=== PATIENT | male | born 1965 | race Two or more races ===

== ENCOUNTER 2020-04-13 12:32 | Emergency (ER) | payer BC, MEDICARE ==
[2020-04-13] MEDS ORDERED: Sodium Chloride 0.9% 10 ML Syringe FLUSH PRN (12:37)
--- NOTE | 2020-04-13 12:37 | EDM.PDOC ---
ED HPI GENERAL MEDICAL PROBLEM - General Chief Complaint: Upper Extremity Injury/Pain Stated Complaint: fall, left shoulder pain Time Seen by Provider: 04/13/20 12:35 Source of Information: Reports: Patient. Denies: Old Records (No [facility] records available) History Limitations: Reports: No Limitations - History of Present Illness INITIAL COMMENTS - FREE TEXT/NARRATIVE: The patient was brought to the emergency room Onset: Today, Sudden Onset Date: 04/13/20 Onset Time: 11:45 Duration: Constant Left Shoulder Pain Score (Numeric/FACES): 10 - Related Data Allergies Allergy/AdvReac Type Severity Reaction Status Date / Time codeine Allergy Vomiting Verified 04/13/20 12:37 Home Meds: Home Meds Losartan [Cozaar] 1 tab PO DAILY 04/13/20 [History] amLODIPine [Norvasc] 2 tab PO DAILY 04/13/20 [History] Course - Vital Signs Last Recorded V/S: Last Vital Signs Temp 35.8 C L 04/13/20 12:34 Pulse 80 04/13/20 12:34 Resp 18 04/13/20 12:34 BP 117/74 04/13/20 12:34 Pulse Ox 97 04/13/20 12:34 - Orders/Labs/Meds Orders: Active Orders 24 hr Category Date Time Status Cardiac Monitoring [RC] . DIRECTED Care 04/13/20 12:51 Active EKG Documentation Completion [RC] ASDIRECTED Care 04/13/20 13:50 Active Oxygen Therapy, ED [RC] PRN Care 04/13/20 12:37 Active Peripheral IV Care [RC] . DIRECTED Care 04/13/20 12:37 Active Pulse Oximetry [RC] CONTINUOUS Care 04/13/20 12:37 Active Up With Assistance [RC] PFP Care 04/13/20 12:37 Active Vaccines to be Administered [RC] PER UNIT ROUTINE Care 04/13/20 13:47 Active Vital Signs [RC] PFP Care 04/13/20 12:37 Active Nothing per Oral Now Diet [DIET] Diet 04/13/20 Breakfast Active Clavicle Lt [CR] Stat Exams 04/13/20 12:40 Taken Ribs 2V w Chest Lt [CR] Stat Exams 04/13/20 12:40 Ordered CULTURE URINE [RM] Urgent Lab 04/13/20 12:37 Ordered UA W/MICROSCOPIC [URIN] Urgent Lab 04/13/20 12:37 Ordered Sodium Chloride 0.9% [Saline Flush] Med 04/13/20 12:37 Active 10 ml FLUSH ASDIRECTED PRN Durable Medical Equipment for Discharge [DME for Oth 04/13/20 13:38 Ordered Discharge] [COMM] Routine Obtain Past Medical Record [OM.PC] Urgent Oth 04/13/20 12:37 Active Peripheral IV Insertion Adult [OM.PC] Stat Oth 04/13/20 12:37 Ordered Resuscitation Status Stat Resus Stat 04/13/20 12:37 Ordered EKG 12 Lead [EK] Stat Ther 04/13/20 13:50 Ordered Medication Orders Sodium Chloride (Saline Flush) 10 ml FLUSH ASDIRECTED PRN PRN Reason: Keep Vein Open Last Admin: 04/13/20 13:44 Dose: 10 ml Labs: Laboratory Tests 04/13/20 04/13/20 04/13/20 Range/Units 13:05 13:05 13:05 WBC 13.4 H (4.0-10.2) K/uL RBC 5.89 H (4.33-5.41) M/uL Hgb 16.7 (13.1-16.8) g/dL Hct 51.0 H (39.0-49.0) % MCV 86.6 (84.0-98.0) fL MCH 28.4 (28.2-33.3) pg MCHC 32.7 (31.7-36.0) g/dL RDW 14.4 H (11.2-14.1) % Plt Count 231 (150-350) K/uL Neut % (Auto) 77.2 (45.0-80.0) % Lymph % (Auto) 16.3 (10.0-50.0) % [place] % (Auto) 5.9 (2.0-14.0) % Eos % (Auto) 0.5 (0.0-5.0) % Baso % (Auto) 0.1 (0.0-2.0) % Neut # (Auto) 10.35 H (1.40-7.00) K/uL Lymph # (Auto) 2.18 (0.50-3.50) K/uL [place] # (Auto) 0.79 (0.00-1.00) K/uL Eos # (Auto) 0.07 (0.00-0.50) K/uL Baso # (Auto) 0.01 (0.00-0.20) K/uL PT 10.0 (9.5-12.0) SEC INR 1.0 APTT 23.0 L (24.5-32.8) SEC Sodium 140 (136-145) mmol/L Potassium 4.0 (3.5-5.1) mmol/L Chloride 104 (98-107) mmol/L Carbon Dioxide 25.9 (21.0-32.0) mmol/L BUN 21 H (7-18) mg/dL Creatinine 1.10 (0.51-1.17) mg/dL Est Cr Clr Drug Dosing TNP Estimated GFR (MDRD) > 60 mL/min Glucose 140 H (74-106) mg/dL Lactic Acid (0.4-2.0) mmol/L Uric Acid 6.8 (2.6-7.2) mg/dL Calcium 8.8 (8.5-10.1) mg/dL Magnesium 1.9 (1.8-2.4) mg/dL Total Bilirubin 0.6 (0.2-1.0) mg/dL AST 18 (15-37) U/L ALT 31 (12-78) U/L Alkaline Phosphatase 86 (46-116) IU/L Creatine Kinase 176 (26-308) U/L Creatine Kinase Index 1.0 (0.0-2.5) % CK-MB (CK-2) 1.80 (0.00-3.60) ng/mL Troponin I 0.018 (0.000-0.056) ng/mL Total Protein 7.1 (6.4-8.2) g/dL Albumin 3.3 L (3.4-5.0) g/dL Amylase 51 (25-115) U/L Lipase 71 L (73-393) U/L // Range/Units 13:05 WBC (4.0-10.2) K/uL RBC (4.33-5.41) M/uL Hgb (13.1-16.8) g/dL Hct (39.0-49.0) % MCV (84.0-98.0) fL MCH (28.2-33.3) pg MCHC (31.7-36.0) g/dL RDW (11.2-14.1) % Plt Count (150-350) K/uL Neut % (Auto) (45.0-80.0) % Lymph % (Auto) (10.0-50.0) % [place] % (Auto) (2.0-14.0) % Eos % (Auto) (0.0-5.0) % Baso % (Auto) (0.0-2.0) % Neut # (Auto) (1.40-7.00) K/uL Lymph # (Auto) (0.50-3.50) K/uL [place] # (Auto) (0.00-1.00) K/uL Eos # (Auto) (0.00-0.50) K/uL Baso # (Auto) (0.00-0.20) K/uL PT (9.5-12.0) SEC INR APTT (24.5-32.8) SEC Sodium (136-145) mmol/L Potassium (3.5-5.1) mmol/L Chloride (98-107) mmol/L Carbon Dioxide (21.0-32.0) mmol/L BUN (7-18) mg/dL Creatinine (0.51-1.17) mg/dL Est Cr Clr Drug Dosing Estimated GFR (MDRD) mL/min Glucose (74-106) mg/dL Lactic Acid 1.9 (0.4-2.0) mmol/L Uric Acid (2.6-7.2) mg/dL Calcium (8.5-10.1) mg/dL Magnesium (1.8-2.4) mg/dL Total Bilirubin (0.2-1.0) mg/dL AST (15-37) U/L ALT (12-78) U/L Alkaline Phosphatase (46-116) IU/L Creatine Kinase (26-308) U/L Creatine Kinase Index (0.0-2.5) % CK-MB (CK-2) (0.00-3.60) ng/mL Troponin I (0.000-0.056) ng/mL Total Protein (6.4-8.2) g/dL Albumin (3.4-5.0) g/dL Amylase (25-115) U/L Lipase (73-393) U/L Meds: Medications Generic Name Dose Route Start Last Admin Trade Name Vicky PRN Reason Stop Dose Admin Sodium Chloride 10 ml 04/13/20 12:37 04/13/20 13:44 Saline Flush FLUSH 10 ml ASDIRECTED PRN Administration Keep Vein Open Discontinued Medications Generic Name Dose Route Start Last Admin Trade Name Fredavey PRN Reason Stop Dose Admin Diphtheria/Tetanus/Acell Pertussis 0.5 ml 04/13/20 13:47 04/13/20 13:57 Adacel IM 04/13/20 13:48 0.5 ml .ONCE ONE Administration Ketorolac Tromethamine 60 mg 04/13/20 13:57 04/13/20 14:04 Toradol IM 04/13/20 13:58 60 mg ONETIME ONE Administration Lidocaine HCl 5 ml 04/13/20 13:27 04/13/20 13:45 Xylocaine-Mpf 1% INJECT 04/13/20 13:28 5 ml ONETIME ONE Administration Lidocaine HCl 5 ml 04/13/20 13:28 04/13/20 13:46 Xylocaine-Mpf 1% INJECT 04/13/20 13:29 5 ml ONETIME ONE Administration Neomycin/Polymyxin/Bacitracin 1 each 04/13/20 13:28 04/13/20 13:45 Triple Antibiotic Oint TOP 04/13/20 13:29 1 each ONETIME ONE Administration Departure - Departure Disposition: Home, Self-Care 01 Clinical Impression: Trauma, Closed left clavicular fracture, Chest wall contusion, Laceration, Tobacco abuse counseling, Hypertension, Osteoarthritis, Hypoalbuminemia - Discharge Information Instructions: Steps to Quit Smoking, [id number], Clavicle Fracture, Easy-to- Read, Head Injury, Adult, [id number], Laceration Care, Adult, [id number], Sutures, Monica, or Adhesive Wound Closure, [id number] Referrals: PCP,None [Primary Care Provider] - Forms: ED Department Discharge Additional Instructions: 1. Followup with your regular provider in 10-14 days as directed for reevaluation and recommended repeat CBC, comprehensive metabolic panel, troponin I, CK and CK-MB. left clavicular x-ray and removal of head monica. Bring these discharge instructions with you to that visit. 2. Tylenol 650 mg by mouth every 4 hours and/or OTC ibuprofen 2-3 tabs by mouth every 6 hours with food as directed./needed. You may stagger these medications for 48-72 hours only, which essentially means that you are receiving a pain medication about every 2 hours. Next dose of ibuprofen in 6 hours as needed secondary to medications given in the emergency room. 3. Antibacterial soap wash/soak with subsequent antibacterial dressing such as Neosporin, etc. as directed 2 times per day until the wound or laceration site completely heals. Keep the area clean and dry with activity restrictions as discussed. Never use hydrogen peroxide for wound care. 4. BenGay or equivalent, heating pad, and/or ice packs as directed. 5. Stop all tobacco use AGUSTINA as directed/per provided information and consider contacting Quit LIne, etc.. 6. Head precautions as directed-see form. 7. Wear arm immobilizer at all times with exception of bathing as discussed until otherwise directed by your regular provider 8. Immediately after this visit verify that your cellular telephone's voicemail has been activated and is empty. Also verify that your home telephone 's answering machine is operating properly and has space to receive messages. Note that it is sometimes necessary for us to be able to contact you at a later date to discuss your medical care. 9. Please remember that we are ALWAYS here for you and want to answer any questions you may have. Feel free to call the hospital any time and we call you back AGUSTINA. Sepsis Event Note - Focused Exam Vital Signs: Vital Signs Temp Pulse Resp BP Pulse Ox 04/13/20 12:34 35.8 C L 80 18 117/74 97 Date Exam was Performed: 04/13/20 Time Exam was Performed: 14:33 - My Orders Last 24 Hours: My Active Orders 04/13/20 12:37 Oxygen Therapy, ED [RC] PRN Peripheral IV Care [RC] . DIRECTED Pulse Oximetry [RC] CONTINUOUS Up With Assistance [RC] PFP Vital Signs [RC] PFP CULTURE URINE [RM] Urgent UA W/MICROSCOPIC [URIN] Urgent Sodium Chloride 0.9% [Saline Flush] 10 ml FLUSH ASDIRECTED PRN Obtain Past Medical Record [OM.PC] Urgent Peripheral IV Insertion Adult [OM.PC] Stat Resuscitation Status Stat 04/13/20 12:40 Clavicle Lt [CR] Stat Ribs 2V w Chest Lt [CR] Stat 04/13/20 12:51 Cardiac Monitoring [RC] . DIRECTED 04/13/20 13:38 Durable Medical Equipment for Discharge [DME for Discharge] [COMM] Routine 04/13/20 13:47 Vaccines to be Administered [RC] PER UNIT ROUTINE 04/13/20 13:50 EKG Documentation Completion [RC] ASDIRECTED EKG 12 Lead [EK] Stat 04/13/20 Breakfast Nothing per Oral Now Diet [DIET] - Assessment/Plan Last 24 Hours: My Active Orders 04/13/20 12:37 Oxygen Therapy, ED [RC] PRN Peripheral IV Care [RC] . DIRECTED Pulse Oximetry [RC] CONTINUOUS Up With Assistance [RC] PFP Vital Signs [RC] PFP CULTURE URINE [RM] Urgent UA W/MICROSCOPIC [URIN] Urgent Sodium Chloride 0.9% [Saline Flush] 10 ml FLUSH ASDIRECTED PRN Obtain Past Medical Record [OM.PC] Urgent Peripheral IV Insertion Adult [OM.PC] Stat Resuscitation Status Stat 04/13/20 12:40 Clavicle Lt [CR] Stat Ribs 2V w Chest Lt [CR] Stat 04/13/20 12:51 Cardiac Monitoring [RC] . DIRECTED 04/13/20 13:38 Durable Medical Equipment for Discharge [DME for Discharge] [COMM] Routine 04/13/20 13:47 Vaccines to be Administered [RC] PER UNIT ROUTINE 04/13/20 13:50 EKG Documentation Completion [RC] ASDIRECTED EKG 12 Lead [EK] Stat 04/13/20 Breakfast Nothing per Oral Now Diet [DIET]
--- NOTE | 2020-04-13 12:47 | EDM.PDOC ---
ED HPI GENERAL MEDICAL PROBLEM - General Chief Complaint: Upper Extremity Injury/Pain Stated Complaint: fall, left shoulder pain Time Seen by Provider: 04/13/20 12:35 Source of Information: Reports: Patient, Old Records (No [facility] records available) History Limitations: Reports: No Limitations - History of Present Illness INITIAL COMMENTS - FREE TEXT/NARRATIVE: The patient was brought to this facility via private automobile by his friends for evaluation of 09/01 sharp left clavicular pain after the patient fell and/ or slipped off of his ladder at home about 5 feet at about 11:45 AM this morning. The patient did fall backwards and hit his head on a rock with no history of headaches, visual changes, loss of consciousness, change in mental status, paresthesias, neurological deficits, neck/back pain, etc. He does complain of nonspecific right lower leg muscle cramping, however no discomfort with movement, etc. In addition, he complains about some possible nonspecific mild left lateral wall chest wall discomfort. The patient denies any other chest pain/pressure, heart flutter, orthostasis, orthopnea, diaphoresis, paresthesias, recent decreased exercise tolerance, or any other anginal-type symptoms, however some nonspecific initial dizziness after the fall. No recent history of abdominal pain, heartburn, nausea, diarrhea, melena, gross hematochezia, or any food intolerance, including fatty foods, etc.. The patient also denies any recent fever, cough, wheezing, dyspnea, etc.. Onset: Today, Sudden Onset Date: 04/13/20 Onset Time: 11:45 Duration: Constant Location: Reports: Head (At laceration site), Chest (Left lateral chest wall), Upper Extremity, Left, Lower Extremity, Right (As above). Denies: Face, Neck, Abdomen, Back, Pelvis, Upper Extremity, Right, Lower Extremity, Left, Radiates to Quality: Reports: Same as Previous Episode, Sharp, Throbbing Severity: Severe Improves with: Reports: Rest Worsens with: Reports: Movement Context: Reports: Trauma Associated Symptoms: Reports: Chest Pain. 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 Endocrine/Metabolic History: Reports: Obesity/BMI 30+ - Past Surgical History HEENT Surgical History: Reports: Oral Surgery, Other (See Below) Other HEENT Surgeries/Procedures: Multiple teeth extractions. Neurological Surgical History: Reports: Discectomy, Lumbar Spine, Sacral Spine, Other (See Below). Denies: C-Spine, Spinal Fusion, Thoracic Spine, Vertebroplasty Other Neurological Surgeries/Procedures: L5-S1 discectomies 2 in his early 30s and 40s. Social & Family History - Tobacco Use Smoking Status *Q: Current Every Day Smoker Tobacco Use Within Last Twelve Months: Cigarettes Years of Tobacco use: 44 Packs/Tins Daily: 1 Packs/Tins Daily Comment: Started smoking at age 10. Used Tobacco, but Quit: No Smoking Cessation Information Provided To Patient: Yes - Living Situation & Occupation Occupation: Disabled (Secondary to his osteoarthritis) ED ROS GENERAL - Review of Systems Review Of Systems: Comprehensive ROS is negative, except as noted in HPI. ED EXAM, GENERAL - Physical Exam Exam: See Below Exam Limited By: No Limitations General Appearance: Alert, WD/WN, No Apparent Distress, Anxious (Mild) Eye Exam: Bilateral Eye: EOMI, Normal Fundi, Normal Inspection, PERRL Ears: Normal External Exam, Normal Canal, Hearing Grossly Normal, Normal TMs Nose: Normal Inspection, Normal Mucosa, No Blood Throat/Mouth: Normal Lips, Normal Gums, Normal Oropharynx, Normal Voice, No Airway Compromise. No: Normal Teeth (Multiple missing teeth with occasional caries without drainage or abscess), Dysphagia, Perioral Cyanosis Head: Normocephalic, Other (1 cm in length superficial laceration over the inferior left occipital region with only minimal localized swelling and ecchymosis with no crepitation, deformity, evidence of skull fracture, etc.). No: Facial Swelling, Facial Tenderness, Sinus Tenderness Neck: Normal Inspection, Supple, Non-Tender, Full Range of Motion. No: Carotid Bruit, Lymphadenopathy (L), Lymphadenopathy (R), Thyromegaly Respiratory/Chest: No Respiratory Distress, Lungs Clear, Normal Breath Sounds, No Accessory Muscle Use, Chest Non-Tender. No: Pleural Rub, Retractions Cardiovascular: Normal Peripheral Pulses, Regular Rate, Rhythm, No Edema, No Gallop, No JVD, No Murmur, No Rub. No: Gallop/S3, Gallop/S4, Friction Rub Peripheral Pulses: 2+: Radial (L), Radial (R), Posterior Tibial (L), Posterior Tibial (R) GI/Abdominal: Normal Bowel Sounds, Soft, Non-Tender, No Organomegaly, No Distention, No Abnormal Bruit, No Mass, Pelvis Stable, Other (Obese). No: Guarding (Male) Exam: Deferred Rectal (Males) Exam: Deferred Back Exam: Normal Inspection, Full Range of Motion. No: CVA Tenderness (L), CVA Tenderness (R), Muscle Spasm, Paraspinal Tenderness, Vertebral Tenderness Extremities: No Pedal Edema, Normal Capillary Refill, Limited Range of Motion ( Left shoulder), Other (Mild deformity over the mid left clavicle with moderate localized palpation pain and swelling). No: Morgan's Sign Neurological: Alert, Oriented, CN II-XII Intact, Normal Cognition, Normal Gait, Normal Reflexes (Negative Babinski's), No Motor/Sensory Deficits Psychiatric: Anxious (Mild) Skin Exam: Warm, Dry, Intact, Normal Color, No Rash, Tattoo(s) (Multiple). No: Diaphoretic, Ecchymosis, Wound/Incision Lymphatic: No Adenopathy ED GENERAL MEDICAL PROCEDURES - Laceration/Wound Repair Left Lower Occipital Head Lac/wound length in cm: 1.0 Appearance: Superficial, Linear Distal NVT: Neuro & Vascular Intact, No Tendon Injury Anesthetic Type: Local Local Anesthesia - Lidocaine (Xylocaine): 1% Plain Local Anesthetic Volume: 3cc Skin Prep: Chlorhexidine (Hibiciens) (Surgical scrub brush) Exploration/Debridement/Repair: Wound Explored, In a Bloodless Field, Explored to Base, No Foreign Material Found Closed with: [place] # of Sutures: 2 Suture Type: Interrupted, Simple Drain Placement: No Sterile Dressing Applied: Nurse Tetanus Status Addressed: Yes Complications: No - Splinting Left Upper Extremity Splint Site: Left arm Pre-procedure NV status: Normal Post-procedure NV status: Normal Splint Material: Other (Shoulder immobilizer) Splint Design: Sling Applied & Form Fitted By: Nurse Provider Post-Splint Application NV Check: NV Status Normal, Good Position Complications: No EKG INTERPRETATION EKG Date: 04/13/20 Time: 13:58 Rhythm: NSR Rate (Beats/Min): 82 [place]: Normal (Neutral) P-Wave: Enlarged (Mild diffuse biphasic P waves) QRS: Normal (0.09 seconds) ST-T: Normal (T-wave inversion in lead aVL) QT: Normal GA/PQ Interval: 0.16 seconds Comparison: NA - No Prior EKG EKG Interpretation Comments: 1. No acute ischemic changes 2. Atrial enlargement-left Course - Vital Signs Last Recorded V/S: Last Vital Signs Temp 35.8 C L 04/13/20 12:34 Pulse 82 04/13/20 13:47 Resp 18 04/13/20 13:32 BP 125/86 04/13/20 13:47 Pulse Ox 100 04/13/20 13:32 Vital Signs - 24 hr 04/13/20 04/13/20 04/13/20 12:34 12:47 13:15 Temperature [ 35.8 C L Temporal] Pulse, 80 80 81 Peripheral [ Pulse Oximetry] Respiratory 18 20 20 Rate Blood Pressure 117/74 107/83 121/79 [Right Arm] O2 Sat by Pulse 97 97 100 Oximetry 04/13/20 04/13/20 13:32 13:47 Temperature [ Temporal] Pulse, 80 82 Peripheral [ Pulse Oximetry] Respiratory 18 Rate Blood Pressure 134/88 125/86 [Right Arm] O2 Sat by Pulse 100 Oximetry - Orders/Labs/Meds Orders: Active Orders 24 hr Category Date Time Status Cardiac Monitoring [RC] . DIRECTED Care 04/13/20 12:51 Active EKG Documentation Completion [RC] ASDIRECTED Care 04/13/20 13:50 Active Oxygen Therapy, ED [RC] PRN Care 04/13/20 12:37 Active Peripheral IV Care [RC] . DIRECTED Care 04/13/20 12:37 Active Pulse Oximetry [RC] CONTINUOUS Care 04/13/20 12:37 Active Up With Assistance [RC] PFP Care 04/13/20 12:37 Active Vaccines to be Administered [RC] PER UNIT ROUTINE Care 04/13/20 13:47 Active Vital Signs [RC] PFP Care 04/13/20 12:37 Active Clavicle Lt [CR] Stat Exams 04/13/20 12:40 Taken Ribs 2V w Chest Lt [CR] Stat Exams 04/13/20 12:40 Taken Durable Medical Equipment for Discharge [DME for Oth 04/13/20 13:38 Ordered Discharge] [COMM] Routine Obtain Past Medical Record [OM.PC] Urgent Oth 04/13/20 12:37 Active Peripheral IV Insertion Adult [OM.PC] Stat Oth 04/13/20 12:37 Ordered Resuscitation Status Stat Resus Stat 04/13/20 12:37 Ordered Labs: Laboratory Tests 04/13/20 04/13/20 04/13/20 Range/Units 13:05 13:05 13:05 WBC 13.4 H (4.0-10.2) K/uL RBC 5.89 H (4.33-5.41) M/uL Hgb 16.7 (13.1-16.8) g/dL Hct 51.0 H (39.0-49.0) % MCV 86.6 (84.0-98.0) fL MCH 28.4 (28.2-33.3) pg MCHC 32.7 (31.7-36.0) g/dL RDW 14.4 H (11.2-14.1) % Plt Count 231 (150-350) K/uL Neut % (Auto) 77.2 (45.0-80.0) % Lymph % (Auto) 16.3 (10.0-50.0) % [place] % (Auto) 5.9 (2.0-14.0) % Eos % (Auto) 0.5 (0.0-5.0) % Baso % (Auto) 0.1 (0.0-2.0) % Neut # (Auto) 10.35 H (1.40-7.00) K/uL Lymph # (Auto) 2.18 (0.50-3.50) K/uL [place] # (Auto) 0.79 (0.00-1.00) K/uL Eos # (Auto) 0.07 (0.00-0.50) K/uL Baso # (Auto) 0.01 (0.00-0.20) K/uL PT 10.0 (9.5-12.0) SEC INR 1.0 APTT 23.0 L (24.5-32.8) SEC Sodium 140 (136-145) mmol/L Potassium 4.0 (3.5-5.1) mmol/L Chloride 104 (98-107) mmol/L Carbon Dioxide 25.9 (21.0-32.0) mmol/L BUN 21 H (7-18) mg/dL Creatinine 1.10 (0.51-1.17) mg/dL Est Cr Clr Drug Dosing TNP Estimated GFR (MDRD) > 60 mL/min Glucose 140 H (74-106) mg/dL Lactic Acid (0.4-2.0) mmol/L Uric Acid 6.8 (2.6-7.2) mg/dL Calcium 8.8 (8.5-10.1) mg/dL Magnesium 1.9 (1.8-2.4) mg/dL Total Bilirubin 0.6 (0.2-1.0) mg/dL AST 18 (15-37) U/L ALT 31 (12-78) U/L Alkaline Phosphatase 86 (46-116) IU/L Creatine Kinase 176 (26-308) U/L Creatine Kinase Index 1.0 (0.0-2.5) % CK-MB (CK-2) 1.80 (0.00-3.60) ng/mL Troponin I 0.018 (0.000-0.056) ng/mL Total Protein 7.1 (6.4-8.2) g/dL Albumin 3.3 L (3.4-5.0) g/dL Amylase 51 (25-115) U/L Lipase 71 L (73-393) U/L // Range/Units 13:05 WBC (4.0-10.2) K/uL RBC (4.33-5.41) M/uL Hgb (13.1-16.8) g/dL Hct (39.0-49.0) % MCV (84.0-98.0) fL MCH (28.2-33.3) pg MCHC (31.7-36.0) g/dL RDW (11.2-14.1) % Plt Count (150-350) K/uL Neut % (Auto) (45.0-80.0) % Lymph % (Auto) (10.0-50.0) % [place] % (Auto) (2.0-14.0) % Eos % (Auto) (0.0-5.0) % Baso % (Auto) (0.0-2.0) % Neut # (Auto) (1.40-7.00) K/uL Lymph # (Auto) (0.50-3.50) K/uL [place] # (Auto) (0.00-1.00) K/uL Eos # (Auto) (0.00-0.50) K/uL Baso # (Auto) (0.00-0.20) K/uL PT (9.5-12.0) SEC INR APTT (24.5-32.8) SEC Sodium (136-145) mmol/L Potassium (3.5-5.1) mmol/L Chloride (98-107) mmol/L Carbon Dioxide (21.0-32.0) mmol/L BUN (7-18) mg/dL Creatinine (0.51-1.17) mg/dL Est Cr Clr Drug Dosing Estimated GFR (MDRD) mL/min Glucose (74-106) mg/dL Lactic Acid 1.9 (0.4-2.0) mmol/L Uric Acid (2.6-7.2) mg/dL Calcium (8.5-10.1) mg/dL Magnesium (1.8-2.4) mg/dL Total Bilirubin (0.2-1.0) mg/dL AST (15-37) U/L ALT (12-78) U/L Alkaline Phosphatase (46-116) IU/L Creatine Kinase (26-308) U/L Creatine Kinase Index (0.0-2.5) % CK-MB (CK-2) (0.00-3.60) ng/mL Troponin I (0.000-0.056) ng/mL Total Protein (6.4-8.2) g/dL Albumin (3.4-5.0) g/dL Amylase (25-115) U/L Lipase (73-393) U/L Meds: Medications Discontinued Medications Generic Name Dose Route Start Last Admin Trade Name Freq PRN Reason Stop Dose Admin Diphtheria/Tetanus/Acell Pertussis 0.5 ml 04/13/20 13:47 04/13/20 13:57 Adacel IM 04/13/20 13:48 0.5 ml .ONCE ONE Administration Ketorolac Tromethamine 60 mg 04/13/20 13:57 04/13/20 14:04 Toradol IM 04/13/20 13:58 60 mg ONETIME ONE Administration Lidocaine HCl 5 ml 04/13/20 13:27 04/13/20 13:45 Xylocaine-Mpf 1% INJECT 04/13/20 13:28 5 ml ONETIME ONE Administration Lidocaine HCl 5 ml 04/13/20 13:28 04/13/20 13:46 Xylocaine-Mpf 1% INJECT 04/13/20 13:29 5 ml ONETIME ONE Administration Neomycin/Polymyxin/Bacitracin 1 each 04/13/20 13:28 04/13/20 13:45 Triple Antibiotic Oint TOP 04/13/20 13:29 1 each ONETIME ONE Administration Sodium Chloride 10 ml 04/13/20 12:37 04/13/20 13:44 Saline Flush FLUSH 10 ml ASDIRECTED PRN Administration Keep Vein Open - Radiology Interpretation Free Text/Narrative:: 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 No cardiomegaly, CHF, pulmonary infiltrates, pneumothorax , etc. Left clavicular x-rays positive for displaced midshaft left clavicular fracture. Departure - Departure Time of Disposition: 14:40 Disposition: Home, Self-Care 01 Condition: Good Clinical Impression: Trauma, Laceration, Tobacco abuse counseling, Hypoalbuminemia Closed left clavicular fracture Qualifiers: Encounter type: initial encounter Clavicle location: shaft Fracture alignment: displaced Qualified Code(s): S42.022A - Displaced fracture of shaft of left clavicle, initial encounter for closed fracture Chest wall contusion Qualifiers: Encounter type: initial encounter Laterality: left Qualified Code(s): S20.212A - Contusion of left front wall of thorax, initial encounter Hypertension Qualifiers: Hypertension type: essential hypertension Qualified Code(s): I10 - Essential ( primary) hypertension Osteoarthritis Qualifiers: Osteoarthritis location: multiple joints Osteoarthritis type: primary Qualified Code(s): M89.49 - Other hypertrophic osteoarthropathy, multiple sites - Discharge Information *PRESCRIPTION DRUG MONITORING PROGRAM REVIEWED*: Not Applicable *COPY OF PRESCRIPTION DRUG MONITORING REPORT IN PATIENT EHSAN: Not Applicable Instructions: Steps to Quit Smoking, [id number]-[id number], Clavicle Fracture, Easy-to- Read, Head Injury, Adult, [id number], Laceration Care, Adult, [id number], Sutures, Monica, or Adhesive Wound Closure, [id number] Referrals: PCP,None [Primary Care Provider] - Forms: ED Department Discharge Additional Instructions: 1. Followup with your regular provider in 10-14 days as directed for reevaluation and recommended repeat CBC, comprehensive metabolic panel, troponin I, CK and CK-MB. left clavicular x-ray and removal of head monica. Bring these discharge instructions with you to that visit. 2. Tylenol 650 mg by mouth every 4 hours and/or OTC ibuprofen 2-3 tabs by mouth every 6 hours with food as directed./needed. You may stagger these medications for 48-72 hours only, which essentially means that you are receiving a pain medication about every 2 hours. Next dose of ibuprofen in 6 hours as needed secondary to medications given in the emergency room. 3. Antibacterial soap wash/soak with subsequent antibacterial dressing such as Neosporin, etc. as directed 2 times per day until the wound or laceration site completely heals. Keep the area clean and dry with activity restrictions as discussed. Never use hydrogen peroxide for wound care. 4. BenGay or equivalent, heating pad, and/or ice packs as directed. 5. Stop all tobacco use AGUSTINA as directed/per provided information and consider contacting Quit LIne, etc.. 6. Head precautions as directed-see form. 7. Wear arm immobilizer at all times with exception of bathing as discussed until otherwise directed by your regular provider 8. Immediately after this visit verify that your cellular telephone's voicemail has been activated and is empty. Also verify that your home telephone 's answering machine is operating properly and has space to receive messages. Note that it is sometimes necessary for us to be able to contact you at a later date to discuss your medical care. 9. Please remember that we are ALWAYS here for you and want to answer any questions you may have. Feel free to call the hospital any time and we call you back AGUSTINA. Sepsis Event Note - Evaluation Sepsis Screening Result: No Definite Risk - Focused Exam Vital Signs: Vital Signs Temp Pulse Resp BP Pulse Ox 04/13/20 13:47 82 125/86 04/13/20 13:32 80 18 134/88 100 04/13/20 13:15 81 20 121/79 100 04/13/20 12:47 80 20 107/83 97 04/13/20 12:34 35.8 C L 80 18 117/74 97 Date Exam was Performed: 04/13/20 Time Exam was Performed: 21:40 - Problem List & Annotations (1) Trauma SNOMED Code(s): 314539327 Code(s): T14.90XA - INJURY, UNSPECIFIED, INITIAL ENCOUNTER Status: Acute Priority: High Onset Date: 04/13/20 Annotation/Comment:: A trauma code was immediately considered in this patient secondary to the mechanism of injury, however based on the clinical presentation of the patient, previous history, etc. this provider did not feel that a trauma code would affect the patient's level of care and was not warranted. Note head laceration and clavicular fracture as below. Mild troponin I elevation and leukocytosis possibly secondary to stress reaction with no chest pain or anginal complaints. Continue to observe by his regular provider. Note normal EKG. No evidence of CHF by today 's chest x-ray. (2) Closed left clavicular fracture SNOMED Code(s): 97984759 Code(s): S42.002A - FRACTURE OF UNSP PART OF LEFT CLAVICLE, INIT FOR CLOS FX Status: Acute Priority: High Onset Date: 04/13/20 Annotation/Comment:: Moderately severe midshaft left clavicular fracture. Close follow-up by regular provider. Patient does not tolerate his arm/shoulder mobilizer well. Activity restrictions, etc. discussed. IM Toradol given for pain control. Orthopedic consultation depending on his clinical course. Qualifiers: Encounter type: initial encounter Clavicle location: shaft Fracture alignment: displaced Qualified Code(s): S42.022A - Displaced fracture of shaft of left clavicle, initial encounter for closed fracture (3) Laceration SNOMED Code(s): 594426458 Code(s): MDE2180 - Status: Acute Priority: High Onset Date: 04/13/20 Annotation/Comment:: Excellent results with laceration repair as above. No evidence of skull fracture. Wound care, activity restrictions, etc. were discussed. He does not know when he had his last tetanus shot with DTaP given. (4) Chest wall contusion SNOMED Code(s): 45480530 Code(s): S20.219A - CONTUSION OF UNSPECIFIED FRONT WALL OF THORAX, INIT ENCNTR Status: Acute Priority: High Onset Date: 04/13/20 Annotation/ Comment:: Minor left chest wall contusion without evidence of rib fracture, etc.. Symptomatic relief as per discharge instructions. No true chest pressure or anginal type symptoms despite mildly elevated troponin I with close follow- up by regular provider as per discharge instructions. Qualifiers: Encounter type: initial encounter Laterality: left Qualified Code(s): S20.212A - Contusion of left front wall of thorax, initial encounter (5) Hypertension SNOMED Code(s): 05951527 Code(s): I10 - ESSENTIAL (PRIMARY) HYPERTENSION Status: Chronic Priority : Medium Annotation/Comment:: Stable by history and during emergency room care despite his discomfort. Continue current medical therapy. Qualifiers: Hypertension type: essential hypertension Qualified Code(s): I10 - Essential (primary) hypertension (6) Osteoarthritis SNOMED Code(s): 000118229 Code(s): M19.90 - UNSPECIFIED OSTEOARTHRITIS, UNSPECIFIED SITE Status: Chronic Priority: Medium Annotation/Comment:: Otherwise stable by history with no evidence of other injury. Qualifiers: Osteoarthritis location: multiple joints Osteoarthritis type: primary Qualified Code(s): M89.49 - Other hypertrophic osteoarthropathy, multiple sites (7) Tobacco abuse counseling SNOMED Code(s): 758897419, 244814997, 410752117 Code(s): Z71.6 - TOBACCO ABUSE COUNSELING Status: Chronic Priority: Medium Annotation/Comment:: Tobacco cessation strongly encouraged with information provided at discharge. (8) Hypoalbuminemia SNOMED Code(s): 291215040 Code(s): E88.09 - OTH DISORDERS OF PLASMA-PROTEIN METABOLISM, NEC Status: Acute Priority: Medium Onset Date: 04/13/20 Annotation/Comment:: Observe for now. - Problem List Review Problem List Initiated/Reviewed/Updated: Yes - My Orders Last 24 Hours: My Active Orders 04/13/20 12:37 Oxygen Therapy, ED [RC] PRN Peripheral IV Care [RC] . DIRECTED Pulse Oximetry [RC] CONTINUOUS Up With Assistance [RC] PFP Vital Signs [RC] PFP Obtain Past Medical Record [OM.PC] Urgent Peripheral IV Insertion Adult [OM.PC] Stat Resuscitation Status Stat 04/13/20 12:40 Clavicle Lt [CR] Stat Ribs 2V w Chest Lt [CR] Stat 04/13/20 12:51 Cardiac Monitoring [RC] . DIRECTED 04/13/20 13:38 Durable Medical Equipment for Discharge [DME for Discharge] [COMM] Routine 04/13/20 13:47 Vaccines to be Administered [RC] PER UNIT ROUTINE 04/13/20 13:50 EKG Documentation Completion [RC] ASDIRECTED - Assessment/Plan Last 24 Hours: My Active Orders 04/13/20 12:37 Oxygen Therapy, ED [RC] PRN Peripheral IV Care [RC] . DIRECTED Pulse Oximetry [RC] CONTINUOUS Up With Assistance [RC] PFP Vital Signs [RC] PFP Obtain Past Medical Record [OM.PC] Urgent Peripheral IV Insertion Adult [OM.PC] Stat Resuscitation Status Stat 04/13/20 12:40 Clavicle Lt [CR] Stat Ribs 2V w Chest Lt [CR] Stat 04/13/20 12:51 Cardiac Monitoring [RC] . DIRECTED 04/13/20 13:38 Durable Medical Equipment for Discharge [DME for Discharge] [COMM] Routine 04/13/20 13:47 Vaccines to be Administered [RC] PER UNIT ROUTINE 04/13/20 13:50 EKG Documentation Completion [RC] ASDIRECTED Assessment:: As above Plan: As above. Extensive precautions were given to the patient, who is in agreement with the treatment plan. See Patient Instructions for further treatment and plan.
[2020-04-13] MEDS ORDERED: Bacitracin/Neomycin/Polymyxin B Oint 0.9 GM U/D Packet TOP ONE (13:28)
[2020-04-13 13:37] LABS: CHLORIDE,CL 104 mmol/L (98-107); SODIUM,NA 140 mmol/L (136-145)
[2020-04-13] MEDS ORDERED: Diphtheria,Pertussis(Acell),Tetanus Vaccine 0.5 ML SDV IM ONE (13:47)
[2020-04-13] MEDS ORDERED: Ketorolac 60 MG/2 ML SDV IM ONE (13:57)
== END 2020-04-13 14:40 | disposition home or self-care (01) ==
LOC: LL.ED 12:32
DX: S42.022A Displaced fracture of shaft of left clavicle, initial encounter for closed fracture (principal); S20.212A Contusion of left front wall of thorax, initial encounter; S01.01XA Laceration without foreign body of scalp, initial encounter; I10 Essential (primary) hypertension; Z88.5 Allergy status to narcotic agent; Z23 Encounter for immunization; M89.49 Other hypertrophic osteoarthropathy, multiple sites; Z71.6 Tobacco abuse counseling; F17.210 Nicotine dependence, cigarettes, uncomplicated; E88.09 Other disorders of plasma-protein metabolism, not elsewhere classified; E66.9 Obesity, unspecified; W11.XXXA Fall on and from ladder, initial encounter; Y92.009 Unspecified place in unspecified non-institutional (private) residence as the place of occurrence of the external cause
CPT/HCPCS: 12001; 36415; 71101-LT; 73000-LT; 80053; 82150; 82550; 82553; 83605; 83690; 83735; 84484; 84550; 85025; 85610; 85730; 90471; 90715; 93005; 96372; 99284-25; J1885; J2001